=== PATIENT | male | born 1970 | race Caucasian/White ===

== ENCOUNTER 2016-10-11 17:31 | Emergency (ER) | payer SELFPAY ==
[~2016-10-11] VITALS: Ht 177.8 cm; Wt 112.0 kg
[~2016-10-11 17:31] MED LIST: ARIP5TAB7 PO; CYCL5TAB PO; OMEP20CA16 PO; PANT40TA4 PO; TEMA15CA PO; VENL75TA PO; ZOLP10TA5 PO
[2016-10-11 17:41] VITALS: Ht 177.8 cm; Wt 112.0 kg
== END 2016-10-11 20:30 | disposition left against medical advice (07) ==
LOC: FTE 17:31
DX: Z53.21 Procedure and treatment not carried out due to patient leaving prior to being seen by health care provider (principal)

== ENCOUNTER 2017-01-15 12:23 | Emergency (ER) | payer OTHER ==
[~2017-01-15] VITALS: Ht 167.6 cm; Wt 113.0 kg
[2017-01-15 12:26] VITALS: Ht 167.6 cm; Wt 113.0 kg
[2017-01-15] MEDS ORDERED: IBUP-1542 PO (15:19)
--- NOTE | 2017-01-15 16:09 | ERD ---
ER Documentation Chief Complaint Date/Time DATE: 01/15/17 TIME: 16:05 Chief Complaint LEFT HAND 1ST,2ND,3RD DIGIT [id number], UMBILICAL PAIN [id number] HPI 46-year-old male patient with no significant past medical history presents to the ED complaining of numbness and tingling of the left thumb, index finger and middle finger that started intermittently for 1 month. Reports that one month ago he also laid on his left arm while he was sleeping. States that he stopped doing that. Denies any fever, chills, abdominal pain, nausea, vomiting, loss of sensation, loss of range of motion. Denies any injuries. States that he has a history of an umbilical hernia that he just got surgery for on July 2016. Reports that he has had intermittent pain but denies any fever, vomiting , constipation. States that this is a stable type of pain and he has an appointment with Dr. Oreilly, his general surgeon on Tuesday in 2 days for further evaluation and treatment. ROS All systems reviewed and are negative except as per history of present illness. Medications Home Meds Active Scripts Ibuprofen* (Motrin*) 600 Mg Tab, 600 MG PO Q6, #30 TAB Prov:DANIELA MCKEE PA-C 01/15/17 Pantoprazole* (Pantoprazole*) 40 Mg Tablet., 40 MG PO BID@18 for 30 Days, 3 Refills Prov:YRN LEWIS 03/13/16 Reported Medications Temazepam* (Temazepam*) 15 Mg Capsule, 15 MG PO HS Y for INSOMNIA, CAP 03/12/16 Zolpidem Tartrate* (Zolpidem Tartrate*) 10 Mg Tablet, 12.5 MG PO QHS Y for INSOMNIA, #30 TAB 03/12/16 Omeprazole* (Omeprazole*) 20 Mg Capsule., 20 MG PO DAILY, #30 CAP 03/12/16 Aripiprazole* (Abilify*) 5 Mg Tab, 5 MG PO DAILY, #30 TAB 03/12/16 Venlafaxine Hcl* (Venlafaxine Hcl*) 75 Mg Tablet, 75 MG PO DAILY, TAB 03/12/16 Cyclobenzaprine Hcl* (Cyclobenzaprine Hcl*) 5 Mg Tablet, 5 MG PO DAILY, #60 TAB 03/12/16 Allergies Allergies: Coded Allergies: No Known Allergy (Unverified , 03/12/16) PMhx/Soc History of Surgery: No Anesthesia Reaction: No Hx Neurological Disorder: No Hx Respiratory Disorders: No Hx Cardiac Disorders: No Hx Psychiatric Problems: Yes (DEPRESSION, ANXIETY, INSOMIA) Hx Miscellaneous Medical Probl: No Hx Alcohol Use: Yes (OCCASSIONALLY) Hx Substance Use: No Hx Tobacco Use: No Smoking Status: Never smoker Physical Exam Vitals Vital Signs Date Time Temp Pulse Resp B/P Pulse Ox O2 Delivery O2 Flow Rate FiO2 01/15/17 12:26 98.3 91 18 141/90 95 Physical Exam Const: [id number], well-nourished. In no acute distress. Head: Atraumatic, normocephalic Eyes: Normal Conjunctiva without injection. No purulent discharge. ENT: Normal external ear, nose. Moist oropharynx without tonsillar exudates. Non -erythematous pharynx. Uvula midline. No drooling. No trismus. Neck: No cervical midline tenderness. Full range of motion. No meningismus. No cervical lymphadenopathy. No JVD. Resp: Clear to auscultation bilaterally. No wheezing, rhonchi, rales, or crackles. No accessory muscle use. No retractions. Cardio: Regular rate and rhythm. No murmurs, rubs or gallops. Abd: Soft, nontender, non distended. Normal bowel sounds. No palpable masses. No rebound tenderness. No guarding. Negative McBurney's point. Negative psoas sign. Negative obturator sign. Reproducible umbilical hernia. No signs of strangulation or incarceration. No ecchymosis noted. Skin: No petechiae or rashes Back: No midline tenderness. No CVA tenderness. Ext: No cyanosis, or edema. Positive Tinel sign. Negative Phalen sign. No tenderness palpation of the bony prominences. Full range of motion of the bilateral upper and lower extremities with flexion, extension, supination, pronation. Neur: Awake and alert. Normal gait. Normal coordination. Psych: Normal Mood and Affect Procedures/MDM This is a 46-year-old male patient with no significant past medical history presents to the ED complaining of numbness and tingling on the first second and third digit of his left hand. He states that he is right-handed. Patient likely has carpal tunnel syndrome as he has a positive Tinel sign. He was placed in a Velcro wrist splint. Splint Assessment: Neurovascularly intact pre and post splint placement with good fit. Patient's extremity symptoms have stabilized while they have been evaluated in the department and are appropriate for outpatient follow up. No evidence of fractures, dislocations, compartment syndrome, neurologic injury, vascular injury, open joint, open fracture, tendon laceration, septic arthritis, osteomyelitis, DVT, foreign body, or other emergent conditions. EKG reviewed and interpreted by Dr. Alonzo Rate/Rhythm: [69 bpm, Normal Sinus Rhythm] No ectopy, no ST elevations, normal axis. T wave inversions present on leads III same as 2016. QRS, ST, T-waves: [No changes consistent w/ acute ischemia] Impression: [No evidence of ischemia or arrhythmia] Low suspicion for acute myocardial infarction, pneumothorax, pneumonia, cardiac tamponade, pulmonary embolism, AAA, aortic dissection, Boerhaave's syndrome, cardiac dysrhythmias,meningitis, intracranial bleed, seizure, stroke, TIA or other emergent conditions. Low suspicion for gastritis, GERD, peptic ulcer disease, cholecystitis, choledocholithiasis, cholangitis, pancreatitis, appendicitis, bowel obstruction , ileus, volvulus, nephrolithiasis, pyelonephritis, hepatitis, perforated viscus , diverticulitis, abdominal hernia, acute abdomen, mesenteric ischemia or other emergent conditions. Patient has an appointment with his general surgeon Dr. Oreilly for further evaluation and treatment for the status post hernia surgery on Tuesday, January 17, 2017. This case was discussed with my supervising physician , Dr. Alonzo who agreed with management and discharge plan. Patient eloped prior to receiving his discharge papers however a call was placed and he was instructed to follow-up with his primary care physician to follow-up with a neurologist or orthopedic physician if his symptoms do not go away with splint placement, ibuprofen and physical therapy. Instructed patient to return to the ED sooner for any worsening symptoms. Patient's questions were answered. Patient understood and agreed with discharge plan. Patient discharged stable. Departure Diagnosis: Primary Impression: Multiple complaints Additional Impressions: Hernia Paresthesias in left hand Patient Instructions: What Is Carpal Tunnel Syndrome (CTS)?, Hernia (Inguinal, Ventral, Umbilical), Paraesthesias Referrals: [facility] YOU HAVE RECEIVED A MEDICAL SCREENING EXAM AND THE RESULTS INDICATE THAT YOU DO NOT HAVE A CONDITION THAT REQUIRES URGENT TREATMENT IN THE EMERGENCY DEPARTMENT. FURTHER EVALUATION AND TREATMENT OF YOUR CONDITION CAN WAIT UNTIL YOU ARE SEEN IN YOUR DOCTORS OFFICE WITHIN THE NEXT 1-2 DAYS. IT IS YOUR RESPONSIBILITY TO MAKE AN APPOINTMENT FOR FOLOW-UP CARE. IF YOU HAVE A PRIMARY DOCTOR --you should call your primary doctor and schedule an appointment IF YOU DO NOT HAVE A PRIMARY DOCTOR YOU CAN CALL OUR PHYSICIAN REFERRAL HOTLINE AT IF YOU CAN NOT AFFORD TO SEE A PHYSICIAN YOU CAN CHOSE FROM THE FOLLOWING [facility] [address] [facility]. [facility] [address] [facility] [facility] [facility] [address] [facility] [facility] [address] [facility] [facility] [address] [facility]. [facility] [address] [facility]. [facility] YOU HAVE RECEIVED A MEDICAL SCREENING EXAM AND THE RESULTS INDICATE THAT YOU DO NOT HAVE A CONDITION THAT REQUIRES URGENT TREATMENT IN THE EMERGENCY DEPARTMENT. FURTHER EVALUATION AND TREATMENT OF YOUR CONDITION CAN WAIT UNTIL YOU ARE SEEN IN YOUR DOCTORS OFFICE WITHIN THE NEXT 1-2 DAYS. IT IS YOUR RESPONSIBILITY TO MAKE AN APPOINTMENT FOR FOLOW-UP CARE. IF YOU HAVE A PRIMARY DOCTOR --you should call your primary doctor and schedule and appointment IF YOU DO NOT HAVE A PRIMARY DOCTOR YOU CAN CALL OUR PHYSICIAN REFERRAL HOTLINE AT . IF YOU CAN NOT AFFORD TO SEE A PHYSICIAN YOU CAN CHOSE FROM THE FOLLOWING [facility] INSTITUTIONS: [facility] [address] [place] [address] [facility] [address] [place] [address] [facility] [address] [place] [address] [facility] Additional Instructions: It is important for you to follow up with your general surgeon in 2 days for further care and treatment for your hernia. Return to the ED for any worsening symptoms such as fever, vomiting, worsening abdominal pain, etc. DANIELA MCKEE PA-C Jan 15, 2017 16:09 DANIELA MCKEE PA-C Jan 15, 2017 16:09
== END 2017-01-15 15:35 | disposition left against medical advice (07) ==
LOC: FTE 12:23
DX: R20.2 Paresthesia of skin (principal); K46.9 Unspecified abdominal hernia without obstruction or gangrene
CPT/HCPCS: 93005

== ENCOUNTER 2018-03-13 10:57 | Emergency (ER) | END 2018-03-13 14:05 | disposition home or self-care (01) ==